=== PATIENT | female | born 1975 | race African-American/Black ===

== ENCOUNTER → 2017-10-31 | Outpatient (CLI) | payer OTHER | LOC: COL.RAD 18:35 | DX: M79.662 Pain in left lower leg (principal); M79.661 Pain in right lower leg; R79.89 Other specified abnormal findings of blood chemistry; Z79.899 Other long term (current) drug therapy ==

== ENCOUNTER → 2017-10-31 | Outpatient (CLI) | payer OTHER | LOC: COL.LAB 14:14 | DX: Z79.810 Long term (current) use of selective estrogen receptor modulators (SERMs) (principal) ==